=== PATIENT | male | born 1995 | race Caucasian/White ===

== ENCOUNTER 2025-05-06 21:14 | Emergency (ER) | payer OTHER, SELFPAY ==
[2025-05-06 21:23] VITALS: BP 148/91
[2025-05-06 21:44] LABS: Hematocrit 42.4 % (39.0-52.0); Hemoglobin 14.4 g/dL (13.0-18.0); Mean Corp Hgb Conc. 34.0 g/dL (33.0-37.0); Mean Corpuscular Volume 89.1 fL (80.0-94.0); Nucleated Red Blood Cells % 0 % (-); Platelet Count 279 10^3/uL (130-400); Red Cell Dist. Width 12.0 % (11.5-14.5)
[2025-05-06 22:01] LABS: COVID-19 Antigen Negative (Negative)
[2025-05-06 22:08] LABS: ALT (SGPT) 31 U/L (0-50); AST (SGOT) 21 U/L (17-59); Albumin 3.8 g/dl (3.5-5.0); Alkaline Phosphatase 54 U/L (38-126); Blood Urea Nitrogen 14 mg/dl (9-20); Calcium 8.5 mg/dl (8.4-10.2); Carbon Dioxide 28 mmol/L (22-30); Chloride 99 mmol/L (98-107); Glucose 118 mg/dl (70-99); Lipase 57 U/L (23-300); Potassium 3.5 mmol/L (3.5-5.1); Sodium 133 mmol/L (135-145); Total Protein 6.9 g/dl (6.3-8.2); eGFR > 60.00
[2025-05-07 01:31] VITALS: BP 134/87
[2025-05-07 01:32] VITALS: BMI 32.5
--- NOTE | 2025-05-07 01:40 | ED.GENMED ---
History of Present Illness
General
Chief Complaint: Cold/Flu/URI Symptoms
Time Seen by Provider: 05/07/25 01:06
History of Present Illness
History of Present Illness:
Rufus is a 30-year-old male with no past medical history who presents complaining of 2 days of nausea vomiting and diarrhea and associated lower abdominal cramping. Denies any fever or chills. Abdominal cramping is intermittent and comes on
around episodes of diarrhea. Has not been able to tolerate any p.o. intake and began vomiting water today. No sick contacts known. He reports having takeout pizza the day prior to the symptoms starting.
Past History
Past History
ED Past Medical History: Asthma
ED Past Surgical History: None
Social History
Tobacco: Non-smoker
Drug: None
Personal: Single
Living: with family
Family History
Family History: Other
Phy Exam
General Physical Exam
General Presentation: well appearing and no apparent distress
General Skin: warm and dry
General Habitus: normal
General Mental: alert
General Hydration: appears well hydrated
ENT Exam
ENT Exam: EOMI, pharynx normal, neck supple and normocephalic
Eye Exam
Eye Exam: PERRL, cornea clear and conjunctiva normal
Cardiovascular Exam
Cardiovascular Exam: regular rate/rhythm, no edema, no murmur and normal peripheral pulses
Pulmonary Exam
Pulmonary Exam: lungs clear, no respiratory distress, no rales, no crackles, no rhonchi, no stridor, no wheezing and no cough
Gastrointestinal Exam
Gastrointestinal Exam: normal bowel sounds, non tender, soft, no organomegaly, no pulsatile mass and non distended
Neurological Exam
Neurological Exam: alert, oriented x3, no motor deficits and speech normal
Musculoskeletal Exam
Musculoskeletal Exam: full ROM and no edema
Skin Exam
Skin Exam: normal color, warm/dry, no rash and no petechia
Psychiatric Exam
Psychiatric Exam: normal mood/affect
Course
Orders/Labs/Results
Orders:
Orders
05/06/25 21:33
Complete Blood Count/With Diff Urgent
Comprehensive Metabolic Panel Urgent
Lipase Urgent
05/06/25 21:37
COVID-19 Antigen Urgent
Source: Nasal Swab
Influenza A+B Rapid Molecular Urgent
[facility] Source: Nasal Swab
Specimen Description:
05/07/25 01:40
0.9% Sodium Chloride 1000 ml [Nss] 1,000 ml IV BOLUS
05/07/25 01:42
Ondansetron Injectable [Zofran] 4 mg .ROUTE .STK-MED ONE
Ondansetron Injectable [Zofran] 4 mg IV NOW STA
Abnormal Lab Results
05/06/25
21:33
Absolute Monos (auto) 0.7 H 10^3/uL
(0.1-0.6)
Monocytes % 12.7 H %
(1.7-9.3)
Sodium 133 L mmol/L
(135-145)
Glucose 118 H mg/dl
(70-99)
05/06/25 21:33
05/06/25 21:33
Vital Signs
Initial and Last Documented VS:
Initial Vital Signs
Temp Pulse Resp BP Pulse Ox
36.8 C 91 18 148/91 98
05/06/25 21:23 05/06/25 21:23 05/06/25 21:23 05/06/25 21:23 05/06/25 21:23
Last Documented Vital Signs
Temp Pulse Resp BP Pulse Ox
36.7 C 80 18 134/87 97
05/07/25 01:31 05/07/25 01:31 05/07/25 01:31 05/07/25 01:31 05/07/25 01:42
MDM/Problems Addressed
Differential Diagnosis Includes:
Minimal abdominal tenderness on my exam. Pain not reproducible. No leukocytosis or shift on his CBC. Mildly hyponatremic to 133 otherwise BMP is unremarkable. Hyponatremia is likely secondary to extensive GI losses. COVID and flu are both
negative.
Discussed with patient obtaining a CT scan. He would prefer to not have CT scan completed if possible. Patient given 1 L normal saline bolus and Zofran. He reports feeling much better and looks much better on exam. Able to drink some lilibeth justin
nauseous. Feels ready for discharge home. Return precautions discussed
*Pulse Oximetry
SaO2: 97
Oxygen Mode of Delivery: Room air
Patient hypoxic: no
*Critical Care Note
Total Time (30-74mins, 75-104mins- exclusive of procedures): Not Applicable
ED Attending Note
-
Portions of this chart may have been created with voice recognition software.� Occasional wrong word or��sound alike� substitutions may have occurred due to the inherent limitations of voice recognition software.
Discharge Plan
Departure
Patient Disposition: Home (Routine Discharge)
Date of Disposition: 05/07/25
Time of Disposition: 02:50
Patient with high blood pressure during this ER visit?: No
Discharge Problem:
Gastroenteritis, Nausea & vomiting
Instructions: Viral gastroenteritis in adults
Prescriptions:
New
ondansetron 4 mg tablet,disintegrating
4 mg PO Q4H PRN (Reason: nausea and vomiting) Qty: 20 0RF
No Action
azithromycin 250 MG tablet
250 mg PO DAILY Qty: 4 0RF
albuterol sulfate 2.5 MG/3 ML solution for nebulization
2.5 mg inhalation R Q4HPRN PRN (Reason: wheezing) Qty: 30 0RF
albuterol sulfate 1 PUFF HFA aerosol inhaler
2 puff inhalation R Q4HPRN PRN (Reason: wheezing) Qty: 1 0RF
Referrals:
Danilo Rendon DO [Family Provider, Family Practice]
Interventions
Interventions:
*General Assessment Last Done: 05/06/25 21:23
*Neglect/Abuse Screening Last Done: 05/07/25 01:32
*ED COVID-19 Vaccine History Last Done: 05/06/25 21:23
*ED Influenza Vaccine History Last Done: 05/06/25 21:23
[facility] Fall Risk Assessment Tool Last Done: 05/07/25 01:32
*Risk Screen - Suicide (C-SSRS) Last Done: 05/06/25 21:23
ED- Pulmonary Assessment Last Done: 05/07/25 01:45
Discharge Date and Time
Print Language: UKRAINIAN
[2025-05-07] MEDS: NSS 1000 IV (01:41)
[2025-05-07] MEDS: ZOFRAN 4 MG IV (01:43)
[2025-05-07 03:45] VITALS: BP 125/86
== END 2025-05-07 03:46 | disposition home or self-care (01) ==
LOC: EMR 21:14
PROVIDERS: Student in an Organized Health Care Education/Training Program; EMERGENCY PHYSICIAN Emergency Medicine; FAMILY PHYSICIAN Family Medicine
DX: K52.9 Noninfective gastroenteritis and colitis, unspecified (principal); J45.909 Unspecified asthma, uncomplicated
CPT/HCPCS: 96374; 96361; 99284; 80053; 83690; 85025; 87502; 87811